=== PATIENT | male | born 1945 | race Caucasian/White ===

== ENCOUNTER → 2019-05-17 14:43 | Outpatient (CLI) | payer MEDICARE, BC, SELFPAY ==
--- NOTE | 2019-05-17 | DI.RAD.S_ITS ---
PROCEDURE: XR CHEST 2V INDICATIONS: SOB TECHNIQUE: 2 views of the chest were acquired. COMPARISON: None. FINDINGS: Surgical changes and devices: None. Lungs and pleura: Lungs are clear. No pleural effusions or pneumothorax. Mediastinum: Mediastinal contours are normal. Heart size is normal. Bones and chest wall: No suspicious bony abnormalities. Soft tissues appear unremarkable. IMPRESSION: Normal for age, source of current shortness of breath symptoms is not seen. Dictated by: Ryan Cook M.D. on 05/17/2019 at 15:38 Approved by: Ryan Cook M.D. on 05/17/2019 at 15:38
== END ==
PROVIDERS: Family Provider Family Medicine; PCP Internal Medicine; Referring Provider Internal Medicine; Visit Provider Internal Medicine
DX: R06.02 Shortness of breath (principal)
CPT/HCPCS: 71046; 80053; 83880; 84443; 85025

== ENCOUNTER → 2019-05-17 18:36 | Outpatient (ROUT) | payer MEDICARE, BC, SELFPAY ==
[2019-05-17 19:16] LABS: Add Manual Diff / Slide Review NO; Basophils Absolute Auto 100 /uL (0-100); Basophils Percent Auto 0.5 % (0-2); Eosinophils Absolute Auto 0 /uL (0-450); Eosinophils Percent Auto 0.2 % (2-4); Hematocrit 49.6 % (41-53); Hemoglobin 16.5 g/dL (13.5-17.5); Lymphocytes Absolute Auto 900 /uL (1100-4500); Lymphocytes Percent Auto 6.5 % (25-40); Mean Corpuscular HGB Conc 33.2 % (30-36); Mean Corpuscular Hemoglobin 28.5 PG (26-34); Mean Corpuscular Volume 85.8 fL (80-100); Monocytes Absolute Auto 600 /uL (0-900); Monocytes Percent Auto 4.6 % (3-14); Neutrophils Absolute Auto 11800 /uL (1500-7000); Neutrophils Percent Auto 88.2 % (50-75); Platelet Count 167 X10^3/uL (150-400); Red Blood Cell Count 5.78 X10^6/uL (4.5-5.9); Red Cell Distribution Width 13.7 % (11.6-14.8); White Blood Cell Count 13.4 X10^3/uL (4.5-11.0)
[2019-05-17 19:21] LABS: Alanine Aminotransferase 28 IU/L (<50); Albumin 4.4 g/dL (3.5-5.0); Albumin Globulin Ratio 1.6 (1.0-2.8); Alkaline Phosphatase 85 U/L (38-126); Aspartate Aminotransferase 35 IU/L (17-59); BUN Creatinine Ratio 24.1 (6-22); Blood Urea Nitrogen 28 mg/dL (9-20); Calcium 10.3 mg/dL (8.4-10.2); Carbon Dioxide 27 mmol/L (22-32); Chloride 103 mmol/L (98-107); Estimated Glomerular Filt Rate > 60.0 mL/min (>60); Globulin 2.8 g/dL (1.7-4.1); Glucose 129 mg/dL (80-110); HEMOLYSIS < 15 (0-50); Potassium 3.8 mmol/L (3.4-5.1); Sodium 141 mmol/L (137-145); Total Protein 7.2 g/dL (6.3-8.2)
[2019-05-17 19:29] LABS: NT-proBNP (BNP-Adult 18+) 2680 pg/mL (<125)
== END ==
PROVIDERS: Family Provider Family Medicine; PCP Internal Medicine; Visit Provider Internal Medicine
DX: R06.02 Shortness of breath (principal)
CPT/HCPCS: 80053; 83880; 84443; 85025

== ENCOUNTER → 2019-06-04 06:42 | Outpatient (CLI) | payer MEDICARE, BC, SELFPAY ==
--- NOTE | 2019-06-04 | DI.ECHO.S_ITS ---
[facility]---------+ [facility] +---------+ : : [address] [place] : : : : [id number] : : : : Phone: [phone]+ Echocardiogram Report + + :Name: HERIBERTO SILVA Study Date: 06/04/2019 Height: 67 in : :[facility] Weight: 180 lb : : Gender: Male BSA: 1.9 m2 : :: 1945 Age: 73 yrs BP: 128/78 mmHg: :Reason For Study: ELEVATED BMP : : Performed By: Michele Reid : :Referring: ARNEL PRICE : + + Interpretation Summary Cannot rule out underlying atrial flutter. Ventricular rate appears to be controlled. The left ventricle is normal in size. Left ventricular ejection fraction is estimated to be 55 +/- 5%. The right ventricle is at the upper limits of normal in size. The right ventricular systolic function is normal. There is a decreased movement of likely noncoronary cusp however no significant aortic stenosis seen. Cannot rule out possible bicuspid aortic valve as well. Procedure: A two-dimensional transthoracic echocardiogram with color flow and Doppler was performed. The study quality was technically adequate. There is no prior echocardiogram noted for this patient. Cannot rule out underlying atrial flutter. Ventricular rate appears to be controlled. Left Ventricle: The left ventricle is normal in size. There is normal left ventricular wall thickness. There is no thrombus. Left ventricular ejection fraction is estimated to be 55 +/- 5%. There are no focal wall motion abnormalities. Diastolic parameters suggest a relaxation abnormality of the left ventricle, consistent with probable normal filling pressures. Right Ventricle: The right ventricle is at the upper limits of normal in size. The right ventricular systolic function is normal. Atria: Both atria are normal in size. The interatrial septum is intact with no evidence for an atrial septal defect. Mitral Valve: There is mild mitral annular calcification. The mitral papillary muscle appears thickened and/or calcified. There is mild mitral regurgitation. Aortic Valve: The aortic valve is trileaflet. The aortic valve is mildly calcified. There is discrete nodular thickening of the non- coronary cusp. There is a decreased movement of likely noncoronary cusp however no significant aortic stenosis seen. Cannot rule out possible bicuspid aortic valve as well. There is no aortic valve stenosis. No aortic regurgitation is present. Tricuspid Valve: The tricuspid valve is normal in structure and function. There is trace tricuspid regurgitation. Pulmonary artery pressures cannot be estimated because of the lack of a measurable TR jet velocity. Pulmonic Valve: The pulmonic valve is not well seen, but is grossly normal. There is trace pulmonic regurgitation. Great Vessels: The aortic root is normal size. The dimensions of the ascending aorta are normal. The pulmonary artery is normal size. The IVC is of normal diameter and collapses greater than 50% with a sniff. This suggests a low right atrial pressure of 3 mm Hg. Pericardium/ Pleura There is no pericardial effusion. There is no pleural effusion. MMode/2D Measurements & Calculations LVIDd: 4.5 cm LVOT diam: 2.0 cm LVIDs: 2.9 cm Ao root diam: 3.2 cm FS: 34.7 % Aortic Jxn: 2.0 cm EPSS: 1.0 cm asc Aorta Diam: 3.3 cm IVSd: 0.67 cm Ao Arch Diam (Prox Trans): 2.6 cm LVPWd: 0.75 cm LV chinchilla. diameter/BSA (cm/m^2): 2.3 LV sys. diameter/BSA (cm/m^2): 1.5 LA dimension: 2.9 cm RA long axis: 3.8 cm LA A2 area: 15.3 cm2 RA area: 14.0 cm2 LA A4 area: 15.4 cm2 RA vol: 44.5 ml LA length (vol): 4.8 cm RA : 23.0 ml/m2 LA vol: 41.6 ml IVC diam: 0.83 cm LA vol index: 21.5 ml/m2 RVD1 (basal): 4.2 cm RVD2 (mid): 4.7 cm Doppler Measurements & Calculations Ao V2 max: 135.3 cm/sec LVOT Max Stef: 107.7 cm/sec Ao V2 mean: 102.8 cm/sec LV V1 max P.6 mmHg Ao max P.3 mmHg LV V1 VTI: 17.5 cm Ao mean P.4 mmHg MARIAH(I,D): 1.9 cm2 Ao V2 VTI: 29.5 cm MARIAH(V,D): 2.6 cm2 sev ratio: 0.59 MARIAH indexed to BSA (cm^2/m^2): 1.0 MV E max stef: 44.2 cm/sec PA V2 max: 84.0 cm/sec MV A max stef: 77.6 cm/sec PA V2 mean: 50.7 cm/sec MV E/A: 0.57 PA mean P.2 mmHg Med Peak E' Stef: 4.5 cm/sec PA pr(Accel): 54.1 mmHg E/E' med: 9.8 PA Accel Time: 0.05 sec Lat Peak E' Stef: 4.0 cm/sec E/E' lat: 11.1 E/e' average: 10.4 MV dec time: 0.22 sec SV([facility]): 57.4 ml Reading Physician:01:[id number] PM
== END ==
PROVIDERS: Family Provider Family Medicine; PCP Internal Medicine; Referring Provider Internal Medicine; Visit Provider Internal Medicine
DX: I34.0 Nonrheumatic mitral (valve) insufficiency (principal); R79.9 Abnormal finding of blood chemistry, unspecified
CPT/HCPCS: 93306

== ENCOUNTER → 2020-02-29 07:58 | Outpatient (CLI) | payer MEDICARE, BC, SELFPAY ==
--- NOTE | 2020-02-29 | DI.US.S_ITS ---
PROCEDURE: US ABDOMEN COMPLETE INDICATIONS: LEFT LOWER QUADRANT PAIN TECHNIQUE: Real-time scanning was performed of the abdominal and retroperitoneal organs, with image documentation. COMPARISON: None. FINDINGS: Liver: Liver is normal in size and homogeneous in echotexture. Gallbladder: Multiple polyps can be seen involving the gallbladder wall, without abnormal vascularity. The largest polyp measures 8 x 10 x 5 mm. Biliary ducts: Intrahepatic bile ducts are non-dilated. Extrahepatic bile duct caliber measures 4 mm. Normal is 6-7 mm or less in diameter, or 10 mm or less post-cholecystectomy. Pancreas: Visualized portions of the pancreas are sonographically normal. Spleen: Spleen is normal in size and homogeneous in echotexture. Kidneys: Kidneys are normal in size and echotexture. Right kidney measures 9.6 cm long; left kidney measures 10.7 cm long. No hydronephrosis or nephrolithiasis. No solid masses. Within the right mid kidney, there is a mildly complicated cyst with minimal debris and a nonvascular septation that measures 1.8 x 1.9 x 1.5 cm. Within the left mid kidney a simple cyst is seen that measures up to 8 mm. Aorta: Visualized aorta is normal in caliber at less than 3 cm. Iliacs: Proximal common iliac arteries are normal in caliber at less than 2.5 cm. IVC: Intrahepatic inferior vena cava is patent. Miscellaneous: No free abdominal fluid. IMPRESSION: No imaging explanation is found for this patient's presenting symptoms. Multiple gallbladder wall polyps are seen that measure up to 1 cm. There is a mildly complex right mid kidney cysts with debris and a nonvascular septation that measures up to 1.9 cm. If clinically appropriate, a dedicated renal mass protocol CT (without and with contrast) could be considered for further evaluation. Dictated by: Aman Garvin M.D. on 02/29/2020 at 9:55 Approved by: Aman Garvin M.D. on 02/29/2020 at 9:57
== END ==
PROVIDERS: Family Provider Family Medicine; PCP Internal Medicine; Referring Provider Physician Assistant; Visit Provider Physician Assistant
DX: R10.32 Left lower quadrant pain (principal); Q61.00 Congenital renal cyst, unspecified; K82.4 Cholesterolosis of gallbladder
CPT/HCPCS: 76700

== ENCOUNTER → 2020-04-17 14:47 | Outpatient (CLI) | payer MEDICARE, BC, SELFPAY ==
--- NOTE | 2020-04-17 | DI.CT.S_ITS ---
PROCEDURE: CT ABDOMEN WO/W CON INDICATIONS: Complex renal cyst on prior ultrasound. TECHNIQUE: Optional 5 mm thick noncontrast images acquired from the diaphragm to the iliac crests. After the administration of intravenous contrast, 5 mm thick images again acquired from the diaphragm to the iliac crests in the arterial and urographic phases. 5 mm thick coronal and sagittal reformats were then acquired. For radiation dose reduction, the following was used: automated exposure control, adjustment of mA and/or kV according to patient size. COMPARISON: [facility], US, US ABDOMEN COMPLETE, 02/29/2020, 8:10. FINDINGS: Image quality: Excellent. Lung bases: Lung bases are clear. Heart size is normal. Genitourinary: Kidneys demonstrate no nephrolithiasis or hydronephrosis. There is a cortical cyst within the interpolar region of the right kidney measuring up to 1.8 x 2.0 cm in transverse dimension. No evidence of internal enhancement or discrete solid component identified. The thin septation visualized on ultrasound is not discretely identified on CT. Within the left kidney, there is a small cortical hypodensity measuring up to 1.0 cm with attenuation values slightly higher than expected for a simple cyst. There is suggestion of internal enhancement although evaluation is limited due to its small size. The opacified renal collecting systems demonstrate no suspicious filling defects. Other solid organs: Evaluation of the liver demonstrates no focal hepatic lesions. The gallbladder appears within normal limits without calcified gallstones. Biliary system is non-dilated. Pancreas enhances normally. No peripancreatic fat stranding or fluid collections. No pancreatic duct dilatation. The spleen is normal in size. No adrenal nodules. Peritoneum and bowel: Visualized bowel loops are normal in wall thickness and caliber. No free fluid or air. Nodes and vessels: No retroperitoneal or mesenteric adenopathy by size criteria. Aorta and inferior vena cava are normal in caliber. Bones: No suspicious bony lesions. No vertebral body compression fractures. Miscellaneous: No ventral hernias. IMPRESSION: 1. Previously visualized right renal cyst demonstrates no evidence of internal enhancement or discrete solid component. 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 2. Small hypodensity in the left kidney measuring up to 1 cm may represent a hyperdense cyst versus a solid mass. Evaluation of internal enhancement is limited due to its small size. Recommend follow-up evaluation in 6 months with a renal protocol MRI or CT if clinically indicated. Dictated by: Archie Herrera M.D. on 04/17/2020 at 16:54 Approved by: Archie Herrera M.D. on 04/17/2020 at 17:04
[2020-04-17 15:29] LABS: BUN Creatinine Ratio 28.7 (6-22); Blood Urea Nitrogen 29 mg/dL (9-20); Calcium 9.6 mg/dL (8.4-10.2); Carbon Dioxide 33 mmol/L (22-32); Chloride 101 mmol/L (98-107); Estimated Glomerular Filt Rate > 60.0 mL/min (>60); Glucose 108 mg/dL (80-110); HEMOLYSIS < 15 (0-50); Potassium 4.2 mmol/L (3.4-5.1); Sodium 138 mmol/L (137-145)
== END ==
PROVIDERS: Family Provider Family Medicine; PCP Internal Medicine; Referring Provider Internal Medicine; Visit Provider Physician Assistant
DX: N28.1 Cyst of kidney, acquired (principal); N26.1 Atrophy of kidney (terminal)
CPT/HCPCS: 36415; 74170; 80048; Q9967